=== PATIENT | female | born 1955 | race Caucasian/White ===

== ENCOUNTER 2016-10-19 16:16 | Emergency (ER) | payer OTHER ==
[~2016-10-19] VITALS: Ht 157.5 cm; Wt 51.3 kg
[2016-10-19 16:43] LABS: ABSOLUTE NEUTROPHILS 3.1 thou/uL (1.4-8.2); BASOPHILS 0.6 % (0.0-2.0); EOSINOPHILS 2.7 % (0.0-3.0); HEMATOCRIT 43.3 % (37.0-47.0); HEMOGLOBIN 15.1 gm/dL (12.0-15.0); LYMPHOCYTES 30.4 % (24.0-44.0); MCH 32.6 pg (26.0-34.0); MCHC 34.9 % (28.0-37.0); MCV 93.4 fL (80.0-100.0); MONOCYTES 7.5 % (1.0-8.0); PLATELET COUNT 249 thou/uL (150-400); POLYS 58.8 % (36.0-66.0); RBC 4.63 mil/uL (4.20-5.00); RDW 12.2 % (10.5-14.5); WBC 5.3 thou/uL (4.0-11.0)
[2016-10-19 16:44] LABS: MANUAL DIFF NO
[2016-10-19 16:50] LABS: CALCIUM 9.2 mg/dL (8.5-10.1); CREATININE 0.8 mg/dL (0.6-1.3); POTASSIUM 3.7 mmol/L (3.5-5.1)
[2016-10-19 16:56] LABS: ALBUMIN 4.1 g/dL (3.4-5.0); DIRECT BILIRUBIN 0.1 mg/dL (<0.1-0.3); TOTAL BILIRUBIN 0.6 mg/dL (<0.1-1.0); TOTAL PROTEIN 7.3 g/dL (6.4-8.2)
[2016-10-19 17:27] LABS: URINE BILIRUBIN NEGATIVE (Negative); URINE BLOOD 1+ (Negative); URINE COLOR YELLOW; URINE GLUCOSE-RANDOM* NEGATIVE (Negative); URINE KETONES TRACE (Negative); URINE NITRITE NEGATIVE (Negative); URINE PROTEIN (DIPSTICK) NEGATIVE (Negative); URINE UROBILINOGEN 0.2 E.U./dl (0.2-1.0)
[2016-10-19 17:38] LABS: BACTERIA 1-9 Few /HPF (None Seen); CASTS None Seen /LPF (None Seen); CRYSTALS None Seen /LPF (None Seen); SQUAMOUS 0-3 Few /LPF (0-3); URINE RBC 0-2 Rare /HPF (0-2); URINE WBC None Seen /HPF (0-5)
[2016-10-19] MEDS ORDERED: COLACE100 MG PO (17:43)
[2016-10-19 17:54] VITALS: BP 140/89
== END 2016-10-19 17:55 | disposition home or self-care (01) ==
LOC: ER 16:16
PROVIDERS: Nurse Practitioner
DX: K59.00 Constipation, unspecified (principal); F10.99 Alcohol use, unspecified with unspecified alcohol-induced disorder

== ENCOUNTER → 2017-03-28 | Outpatient (CLI) | payer OTHER ==
[~2017-03-28] MED LIST: COLACE100 MG PO
== END ==
LOC: RAD 14:05
DX: Z12.31 Encounter for screening mammogram for malignant neoplasm of breast (principal)

== ENCOUNTER 2018-03-24 11:57 | Emergency (ER) | payer OTHER ==
[~2018-03-24] VITALS: Ht 157.5 cm; Wt 52.2 kg
--- NOTE | ~2018-03-24 | EKG ---
[place] [id number] [address] [place] [address] ELECTROCARDIOGRAM REPORT Name: ELIZABETH MELGAR Room #: [facility]Ul[id number] Admission: 03/24/18 Attend Phys: Discharge: 03/24/18 Date of : 59 Report #: [id number] THIS REPORT FOR: //name// [facility] ED Test Date: 2018-03-24 Test Time: 12:05:38 Pat Name: ELIZABETH MELGAR Department: Room: Gender: F [employer] Vehicle Operator: maite : 1955 Requested By: Matt Pretty Order Number: [id number] MD: Manan Abebe Measurements Intervals [place] Rate: 66 P: 78 OK: 174 QRS: 22 QRSD: 105 T: 56 QT: 440 QTc: 461 Interpretive Statements Sinus rhythm Normal tracing No previous ECG available for comparison Electronically Signed On 03-25-2018 10:16:20 CDT by Manan Abebe [email or web address] <ELECTRONICALLY SIGNED> By: Manan Abebe MD, [facility] 03/25/18 1016 1205 1205 Manan Abebe MD, FACC /EPI
[2018-03-24 12:16] LABS: ABSOLUTE NEUTROPHILS 2.3 thou/uL (1.4-8.2); BASOPHILS 0.9 % (0.0-2.0); EOSINOPHILS 1.8 % (0.0-3.0); HEMATOCRIT 39.8 % (37.0-47.0); HEMOGLOBIN 13.6 gm/dL (12.0-15.0); LYMPHOCYTES 44.3 % (24.0-44.0); MCH 33.2 pg (26.0-34.0); MCHC 34.1 g/dL (28.0-37.0); MCV 97.2 fL (80.0-100.0); MONOCYTES 7.5 % (1.0-8.0); PLATELET COUNT 200 thou/uL (150-400); POLYS 45.5 % (36.0-66.0); RDW 12.2 % (10.5-14.5)
[2018-03-24 12:28] LABS: ANION GAP 6 mmol/L (7-16); BUN 10 mg/dL (7-18); CALCIUM 8.9 mg/dL (8.5-10.1); CHLORIDE 100 mmol/L (98-107); CO2 25 mmol/L (21-32); CREATININE 0.7 mg/dL (0.6-1.0); GLUCOSE 119 mg/dL (74-106); POTASSIUM 3.8 mmol/L (3.5-5.1)
[2018-03-24 12:30] LABS: SODIUM 131 mmol/L (136-145)
[2018-03-24 12:37] LABS: ALBUMIN 3.7 g/dL (3.4-5.0); LIPASE 144 U/L (73-393); SGOT 36 U/L (15-37); SGPT 37 U/L (30-65); TOTAL BILIRUBIN 0.7 mg/dL (<0.1-1.0); TOTAL PROTEIN 6.5 g/dL (6.4-8.2); TROPONIN-I <0.06 ng/mL (<0.06)
[2018-03-24 13:00] VITALS: BP 139/70
== END 2018-03-24 14:28 | disposition home or self-care (01) ==
LOC: ER 11:57
PROVIDERS: Physician Assistant
DX: R55 Syncope and collapse (principal)

== ENCOUNTER → 2019-08-26 | Outpatient (CLI) | payer OTHER | LOC: RAD 11:52 | DX: Z12.31 Encounter for screening mammogram for malignant neoplasm of breast (principal) ==